=== PATIENT | male | born 1940 | race Caucasian/White ===

== ENCOUNTER → 2018-01-23 | Outpatient (CLI) | payer MEDICARE, OTHER | LOC: LAB 13:26 | PROVIDERS: ATTEND Surgery | DX: Z02.9 Encounter for administrative examinations, unspecified (principal) ==

== ENCOUNTER → 2018-01-23 | Outpatient (CLI) | payer MEDICARE, OTHER ==
[~2018-01-23] MED LIST: OMNIPAQUE 350 MG/ML, 100ML BOTTLE ONE
== END | disposition home or self-care (01) ==
LOC: RAD 14:42
PROVIDERS: ATTEND Surgery
DX: I26.99 Other pulmonary embolism without acute cor pulmonale (principal); N28.1 Cyst of kidney, acquired; K57.30 Diverticulosis of large intestine without perforation or abscess without bleeding; K40.90 Unilateral inguinal hernia, without obstruction or gangrene, not specified as recurrent
CPT/HCPCS: 74174; Q9967

== ENCOUNTER 2020-01-27 08:14 | Observation (INO) | payer MEDICARE, OTHER ==
[~2020-01-27] VITALS: Ht 182.9 cm; Wt 94.2 kg
[2020-01-27] MEDS ORDERED: APIX5TAB PO (08:49)
[2020-01-27] MEDS ORDERED: CALC-112 PO (08:49)
[2020-01-27] MEDS ORDERED: HYDR-3342 PO (08:49)
[2020-01-27] MEDS ORDERED: TAMS-11 PO (08:49)
[2020-01-27] MEDS ORDERED: EVOL140S2 INJ (08:49)
[2020-01-27] MEDS ORDERED: vitamin b12 PO (08:49)
[2020-01-27] MEDS: SODIUM CHLORIDE 0.9% 1,000 ML IV SCH ×2 (08:51→16:51)
[2020-01-27] MEDS ORDERED: CEFAZOLIN PMX 1GM/50ML 50 ML IVPB ONE (09:00)
[2020-01-27 09:23] VITALS: BP 134/48
[2020-01-27 09:27] LABS: BASOPHILS # (AUTO) 0.03 x10^3/uL (0-0.1); BASOPHILS % (AUTO) 0 % (0-1); EOSINOPHILS # (AUTO) 0.25 x10^3/uL (0-0.4); EOSINOPHILS % (AUTO) 3 % (1-7); LYMPHOCYTES # (AUTO) 1.15 x10^3/uL (1-3.4); LYMPHOCYTES % (AUTO) 15 % (22-44); MD NO; MEAN CORPUSCULAR HEMOGLOBIN 28.4 pg (27.5-34.5); MEAN CORPUSCULAR HGB CONC 31.7 g/dL (33.2-36.2); MEAN CORPUSCULAR VOLUME 89.6 fL (81-97); MEAN PLATELET VOLUME 9.5 fL (7.4-10.4); MONOCYTES # (AUTO) 0.95 x10^3/uL (0.2-0.8); MONOCYTES % (AUTO) 13 % (2-9); NEUTROPHILS # (AUTO) 5.15 x10^3/uL (1.8-6.8); NEUTROPHILS % (AUTO) 68 % (42-75); PLATELET COUNT 178 x10^3/uL (130-400); RED CELL DISTRIBUTION WIDTH 15.5 % (9.4-14.8)
[2020-01-27] MEDS ORDERED: PLEASE ENTER HEIGHT AND WEIGHT MC SCH (09:30)
[2020-01-27 09:36] LABS: ANION GAP 7 mmol/L (5-15); CALCIUM 9.5 mg/dL (8.5-10.1); CHLORIDE 112 mmol/L (98-107); CREATININE 1.83 mg/dL (0.7-1.3)
[2020-01-27 09:39] LABS: INTERNATIONAL NORMALIZED RATIO 0.99 (0.93-1.1); PROTHROMBIN TIME 10.5 Seconds (9.6-11.5)
[2020-01-27] MEDS ORDERED: LIDOCAINE 2%, 20ML ONE (13:00)
[2020-01-27] MEDS ORDERED: CEFAZOLIN 1,000 MG ONE ×2 (13:00→13:01)
[2020-01-27] MEDS ORDERED: CEFAZOLIN PMX 1GM/50ML 0 ML ONE (13:00)
[2020-01-27] MEDS ORDERED: MIDAZOLAM 1 MG/ML, 5ML ONE (13:00)
[2020-01-27] MEDS ORDERED: FENTANYL PF 100 MCG/2ML ONE (13:00)
[2020-01-27 13:50] VITALS: BP 150/51
[2020-01-27 21:57] VITALS: BP 155/63
[2020-01-28] MEDS: SODIUM CHLORIDE 0.9% 1,000 ML IV SCH (00:51)
[2020-01-28 01:37] VITALS: BP 135/68
[2020-01-28 08:49] VITALS: BP 135/68
[2020-01-28] MEDS ORDERED: TAMSULOSIN 0.4 MG CAP.ER.24H PO SCH (09:00)
== END 2020-01-28 10:54 | disposition home or self-care (01) ==
LOC: CACL 08:14 → 5SO 09:17 → CACL 20:38 → DCLOUNGE 01-28 10:41
PROVIDERS: ADMIT Internal Medicine Clinical Cardiac Electrophysiology; ATTEND Internal Medicine Clinical Cardiac Electrophysiology
DX: R00.1 Bradycardia, unspecified (principal); I45.10 Unspecified right bundle-branch block; I25.9 Chronic ischemic heart disease, unspecified; I45.5 Other specified heart block; I71.4 Abdominal aortic aneurysm, without rupture; I10 Essential (primary) hypertension; E78.5 Hyperlipidemia, unspecified; J44.9 Chronic obstructive pulmonary disease, unspecified; Z87.891 Personal history of nicotine dependence; Z79.899 Other long term (current) drug therapy; Z79.01 Long term (current) use of anticoagulants; Z86.718 Personal history of other venous thrombosis and embolism
CPT/HCPCS: 33208; 36415; 71045; 80048; 85025; 85610; 99156; 99157; C1779; C1785; C1892; G0378; J0690; J2250; J3010; J3490